=== PATIENT | male | born 1975 | race Two or more races ===

== ENCOUNTER 2016-08-22 20:35 | Emergency (ER) | payer BC, OTHER ==
[2016-08-22 20:51] VITALS: BP 143/90; PULSE 72; TEMP 98.3; BMI 29.1
[2016-08-22] MEDS ORDERED: HYDROCORTISONE ACETATE 25 MG/SUPP.RECT PR ONE (22:08)
--- NOTE | 2016-08-22 22:13 | PDOC ---
History of Present Illness - General Chief Complaint: Rectal Bleed Stated Complaint: RECTAL BLEEDING Time Seen by Provider: 08/22/16 21:49 History Source: Patient - History of Present Illness Initial Comments: 08/22/16 22:05 41 year old started on colon cleanse yesterday with several episodes of diarrhea /loose stools. last episode with rectal bleeding. + rectal bleeding denies pmhx Past History - Travel Traveled outside of the country in the last 30 days: No Close contact w/someone who was outside of country & ill: No - Past Medical History Allergies/Adverse Reactions: Allergies Allergy/AdvReac Type Severity Reaction Status Date / Time No Known Allergies Allergy Verified 08/22/16 20:48 Home Medications: Ambulatory Orders Hemorrhoidal Suppository [Anusol Suppository -] 1 each RC BID #14 supp 08/22/16 - Psycho/Social/Smoking Cessation Hx Suicidal Ideation: No Smoking Status: No Smoking History: Never smoked Number of Cigarettes Smoked Daily: 0 Review of Systems - Review of Systems Able to Perform ROS?: Yes Is the patient limited [place] proficient: No Constitutional: Yes: Symptoms Reported ABD/GI: Yes: Rectal Bleeding (with rectal pain). No: Symptoms Reported, See HPI , Abdominal Distended, Abd. Pain w/ defecation, Blood Streaked Bowels, Constipated, Diarrhea, Difficulty Swallowing, Nausea, Poor Appetite, Poor Fluid Intake, Vomiting, Indigestion, Abdominal cramping, Tarry Stools, Other *Physical Exam - Vital Signs Last Vital Signs Temp Pulse Resp BP Pulse Ox 98.3 F 72 18 143/90 97 08/22/16 20:50 08/22/16 20:50 08/22/16 20:50 08/22/16 20:50 08/22/16 20:50 - Physical Exam General Appearance: Yes: Appropriately Dressed Respiratory/Chest: positive: Lungs Clear, Normal Breath Sounds Gastrointestinal/Abdominal: positive: Normal Bowel Sounds, Soft. negative: Tender Rectal Exam: positive: normal rectal tone, other (+ external hemorrhoid + roberto blood noted with internal digit rectal exam). negative: melena Progress Note - Progress Note Progress Note: A: rectal bleeding. hemorrrhoids P: stoool guiac anusol pmd follow up *DC/Admit/Observation/Transfer Diagnosis at time of Disposition: Rectal bleeding - Discharge Dispostion Disposition: HOME - Prescriptions Prescriptions: Hemorrhoidal Suppository [Anusol Suppository -] 1 each BID #14 supp - Referrals Referrals: STAFF,NOT ON [Primary Care Provider] - Miguel Toth MD [Staff Physician] - - Patient Instructions Printed Discharge Instructions: DI for Hemorrhoids Additional Instructions: apply anusol as prescribed. follow up with your doctor as soon as possible. return to the ED if symptoms wrosen. - Post Discharge Activity Work/School Note: Back to Work
[2016-08-22] MEDS ORDERED: PHENYLEPHRINE 0.25%/STARCH 1 EACH SUPP.RECT RC ONE (22:19)
== END 2016-08-22 23:25 | disposition home or self-care (01) ==
LOC: JER 20:35
DX: K64.4 Residual hemorrhoidal skin tags (principal)
CPT/HCPCS: 82272; 99282-25

== ENCOUNTER 2018-07-28 21:27 | Emergency (ER) | payer OTHER ==
[2018-07-28 21:36] VITALS: BP 124/77; PULSE 84; TEMP 98.1; BMI 29.8
--- NOTE | 2018-07-28 23:58 | PDOC ---
History of Present Illness - General Chief Complaint: Back Pain Stated Complaint: BACK PAIN Time Seen by Provider: 07/28/18 23:37 History Source: Patient Exam Limitations: No Limitations - History of Present Illness Initial Comments: 07/28/18 23:53 43 yo male no sig pmh presents to the ED with intermittent left lower back pain radiating into his groin. Pt states the pain started 7 days ago, came on suddenly without warning, described as sharp pain with severe intensity lasting for 2-3 hours. Pt admits to urinary retention and difficulty urinating due to pain. Pain resolved but returned again today with more severe intensity and associated warmth and 1 episode of NB/NB vomiting. Denies hx of urinary stones/ UTIs, excessive alcohol or meat consumption, F/C, blood in urine, numbness/ tingling or weakness into his lower limbs, incontinence/retention of stool, CP or SOB Past History - Past Medical History Allergies/Adverse Reactions: Allergies Allergy/AdvReac Type Severity Reaction Status Date / Time No Known Allergies Allergy Verified 08/22/16 20:48 Home Medications: Ambulatory Orders Phenylephrine 0.25%/Starch [Anusol Suppository -] 1 each RC BID #14 supp Tamsulosin HCl [Flomax -] 0.4 mg PO DAILY #14 cap.er.24h 07/29/18 Cancer: No Cardiac Disorders: No CVA: No COPD: No CHF: No - Suicide/Smoking/Psychosocial Hx Smoking Status: No Smoking History: Never smoked Number of Cigarettes Smoked Daily: 0 Review of Systems - Review of Systems Constitutional: No: Chills, Fever Respiratory: No: Shortness of Breath Cardiac (ROS): No: Chest Pain, Edema, Palpitations ABD/GI: Yes: Vomiting (resolved). No: Constipated, Diarrhea : Yes: Dysuria, Flank Pain. No: Incontinence Musculoskeletal: Yes: Back Pain Neurological: No: Numbness, Tingling, Weakness, Unsteady Gait, Ataxia *Physical Exam - Vital Signs Last Vital Signs Temp Pulse Resp BP Pulse Ox 98.1 F 84 20 124/77 98 07/28/18 21:33 07/28/18 21:33 07/28/18 21:33 07/28/18 21:33 07/28/18 21:33 - Physical Exam General Appearance: Yes: Nourished, Appropriately Dressed. No: Apparent Distress HEENT: positive: EOMI Neck: positive: Supple. negative: Carotid bruit Respiratory/Chest: positive: Lungs Clear, Normal Breath Sounds. negative: Accessory Muscle Use, Rapid RR, Crackles, Wheezing Vascular Pulses: Dorsalis-Pedis (R): 4+, Doralis-Pedis (L): 4+ Gastrointestinal/Abdominal: positive: Flat, Soft. negative: Pulsatile Mass, Protuberent, Distended, Guarding, Rebound, Tenderness Musculoskeletal: positive: CVA Tenderness (left) Extremity: positive: Normal Capillary Refill, Normal Inspection, Normal Range of Motion, Other (negative straight leg raise test). negative: Tender Integumentary: positive: Normal Color, Dry, Warm Neurologic: positive: Fully Oriented, Alert, Normal Mood/Affect, Normal Response , Motor Strength 5/5. negative: Numbness, Sensory Deficit ED Treatment Course - LABORATORY CBC & Chemistry Diagram: 07/28/18 23:54 07/28/18 23:54 Medical Decision Making - Medical Decision Making 43 yo male no sig pmh presents to the ED with intermittent left lower back pain radiating into his groin. Pt states the pain started 7 days ago, came on suddenly without warning, described as sharp pain with severe intensity lasting for 2-3 hours. Pt admits to urinary retention and difficulty urinating due to pain. Pain resolved but returned again today with more severe intensity and associated warmth and 1 episode of NB/NB vomiting. Denies hx of urinary stones/ UTIs, excessive alcohol or meat consumption, F/C, blood in urine, numbness/ tingling or weakness into his lower limbs, incontinence/retention of stool, CP or SOB Pain resolved prior to ED arrival vitals wnl AOX3 NAD DDX INLT: UTI/Stone, diverticulitis, sciatica/bulging disc CBC and CMP wnl UA shows trace blood with RBC, spiral CT ordered CT shows urinary stones which likely has caused pts pain. Mild hydro noted along with liver lesion that needs non emergent f/u studies Pt non toxic appearing, no fever, elevated HR, WBC elevation and currently asymptomatic Pt given prescription of flomax, PCP f/u, Urology f/u, GI f/u and instructions on how to deal with urinary stones going forward Pt understands and agrees with DC plans, all questions answered *DC/Admit/Observation/Transfer Diagnosis at time of Disposition: Urinary stone - Discharge Dispostion Disposition: HOME Condition at time of disposition: Stable Decision to Admit order: No - Prescriptions Prescriptions: Tamsulosin HCl [Flomax -] 0.4 mg PO DAILY #14 cap.er.24h - Referrals Referrals: Osito Simpson MD [Staff Physician] - Ankit Lucia MD [Staff Physician] - - Patient Instructions Printed Discharge Instructions: DI for Kidney Stones Additional Instructions: Please see your Primary Doctor within the next 48 hours. Call to make an appointment with both Urology and GI doctor. Take the medication Flomax 1 time daily to help pass the stone along as well as Motrin for pain relief over the counter. Return to the ER for new or concerning symptoms including but not limited to: high fevers, excessive pain not relieved by medication, inability to go to the bathroom, blood in the urine. Thank you - Post Discharge Activity Forms/Work/School Notes: Back to Work
[2018-07-29 00:08] LABS: EPI CELLS 0.3 /HPF (0-5); URINE APPEARANCE CLEAR; URINE BACTERIA 0.2 /hpf (NEGATIVE); URINE BILIRUBIN NEGATIVE (NEGATIVE); URINE CASTS 1 /hpf (0-8); URINE COLOR YELLOW; URINE GLUCOSE (UA) NEGATIVE (NEGATIVE); URINE KETONE NEGATIVE (NEGATIVE); URINE LEUK ESTERASE NEGATIVE (NEGATIVE); URINE NITRITE NEGATIVE (NEGATIVE); URINE PROTEIN NEGATIVE (NEGATIVE); URINE RBC 4 /hpf (0-4); URINE UROBILINOGEN 0.2 mg/dL (0.2-1.0); URINE WBC 1 /hpf (0-5)
[2018-07-29 00:15] LABS: BASO % 0.5 % (0-2.0); EOS % 0.7 % (0-4.5); HEMATOCRIT 37.5 % (35.4-49); HEMOGLOBIN 12.5 GM/dL (11.7-16.9); LYMPH % 20.3 % (8-40); MCH 27.3 pg (25.7-33.7); MCHC 33.4 g/dl (32.0-35.9); MEAN CELL VOLUME 81.7 fl (80-96); MEAN PLT VOLUME 9.2 fl (7.5-11.1); MONO % 6.1 % (3.8-10.2); NEUT % 72.4 % (42.8-82.8); PLATELET COUNT 220 K/MM3 (134-434); RBC 4.59 M/mm3 (4.00-5.60); RDW 13.8 % (11.9-15.9); WHITE BLOOD COUNT 10.8 K/mm3 (4.0-10.0)
[2018-07-29 00:39] LABS: ALBUMIN 4.2 g/dl (3.4-5.0); ALK PHOS 66 U/L (45-117); ANION GAP 6 MMOL/L (8-16); BILIRUBIN,TOTAL 0.2 mg/dL (0.2-1); BLOOD UREA NITROGEN 19 mg/dL (7-18); CALCIUM 8.9 mg/dL (8.5-10.1); CHLORIDE 104 mmol/L (98-107); CO2 28 mmol/L (21-32); CREATININE 1.1 mg/dL (0.55-1.3); GLUCOSE,RANDOM 111 mg/dL (74-106); POTASSIUM 4.1 mmol/L (3.5-5.1); SGOT/AST 22 U/L (15-37); SGPT/ALT 23 U/L (13-61); SODIUM 137 mmol/L (136-145); TOT PROT 8.1 g/dl (6.4-8.2)
== END 2018-07-29 01:21 | disposition home or self-care (01) ==
LOC: JER 21:27
DX: N20.9 Urinary calculus, unspecified (principal)
CPT/HCPCS: 36415; 74176-TC; 80053; 81003; 85025; 87086; 99282-25

== ENCOUNTER 2020-12-02 19:15 | Emergency (ER) | payer OTHER ==
[2020-12-02 19:30] VITALS: BP 143/87; PULSE 75; TEMP 98.3; BMI 29.9
[2020-12-02] MEDS ORDERED: KETOROLAC TROMETHAMINE 15 MG/ML VIAL IM ONE (20:05)
[2020-12-02] MEDS ORDERED: KETOROLAC TROMETHAMINE 15 MG/ML VIAL ONE (20:20)
[2020-12-02 21:07] LABS: BASO % 0.2 % (0-2.0); EOS % 0.1 % (0-4.5); HEMATOCRIT 35.8 % (35.4-49); MCH 27.2 pg (25.7-33.7); MCHC 33.5 g/dl (32.0-35.9); MEAN CELL VOLUME 81.1 fl (80-96); MEAN PLT VOLUME 8.7 fl (7.5-11.1); MONO % 3.4 % (3.8-10.2); NEUT % 83.3 % (42.8-82.8); PLATELET COUNT 224 10^3/uL (134-434); RBC 4.42 M/mm3 (4.00-5.60); RDW 13.8 % (11.9-15.9); WHITE BLOOD COUNT 9.6 K/mm3 (4.0-10.0)
[2020-12-02 21:19] LABS: EPI CELLS 2 /uL (0-25.1); HYALINE CASTS 1 /uL (0-3.1); URINE APPEARANCE CLEAR; URINE BACTERIA 1 /uL (0-1359); URINE BILIRUBIN NEGATIVE (NEGATIVE); URINE COLOR YELLOW; URINE GLUCOSE (UA) NEGATIVE (NEGATIVE); URINE KETONE NEGATIVE (NEGATIVE); URINE LEUK ESTERASE NEGATIVE (NEGATIVE); URINE NITRITE NEGATIVE (NEGATIVE); URINE PROTEIN NEGATIVE (NEGATIVE); URINE RBC 27 /uL (0-23.9); URINE UROBILINOGEN 0.2 mg/dL (0.2-1.0); URINE WBC 4 /uL (0-25.8)
[2020-12-02 21:32] LABS: ALBUMIN 4.3 g/dl (3.4-5.0); BLOOD UREA NITROGEN 21.9 mg/dL (7-18); CALCIUM 8.6 mg/dL (8.5-10.1)
[2020-12-02 21:36] LABS: CREATININE 1.2 mg/dL (0.55-1.3)
[2020-12-02 21:37] LABS: BILIRUBIN,TOTAL 0.2 mg/dL (0.2-1); TOT PROT 8.2 g/dl (6.4-8.2)
[2020-12-02] MEDS ORDERED: ACETAMINOPHEN 1000 MG/100 ML VIAL (NON FORMULARY) IVPB ONE (21:46)
[2020-12-02] MEDS ORDERED: ACETAMINOPHEN INJECTION 100 ML IVPB ONE (22:03)
== END 2020-12-02 22:42 | disposition home or self-care (01) ==
LOC: JER 19:15
PROC: 3E0233Z Introduction of Anti-inflammatory into Muscle, Percutaneous Approach (ICD-10-PCS; principal; 2020-12-02)
PROC: 3E033NZ Introduction of Analgesics, Hypnotics, Sedatives into Peripheral Vein, Percutaneous Approach (ICD-10-PCS; 2020-12-02)
DX: N21.0 Calculus in bladder (principal)
CPT/HCPCS: 36415; 74176-TC; 76870-TC; 80053; 81003; 85025; 87086; 99285-25; J0131

== ENCOUNTER 2021-02-01 04:20 | Day surgery (SDC) | payer OTHER ==
[2021-01-29 10:29] VITALS: BMI 29.8
[2021-02-01] MEDS ORDERED: PROPOFOL 20 ML ONE ×2 (11:46→12:01)
[2021-02-01 13:09] VITALS: BP 136/94; PULSE 74; TEMP 98.2
== END 2021-02-01 13:12 | disposition home or self-care (01) ==
LOC: JASU-SURG 04:20
PROVIDERS: ATTEND Urology
PROC: 0TF3XZZ Fragmentation in Right Kidney Pelvis, External Approach (ICD-10-PCS; principal; 2021-02-01 11:00)
DX: N20.0 Calculus of kidney (principal)